=== PATIENT | female | born 1965 | race Caucasian/White ===

== ENCOUNTER → 2016-06-18 | Outpatient (CLI) | payer OTHER ==
[~2016-06-18] MED LIST: ALBU17IN INH; AMLO10TA2 PO; CLAR10CA3 PO; CLOB0.77 TOP; DILT60TA PO; DUONSOL INH; FURO20TA2 PO; FURO40TA2 PO; IBUP-1114 PO; IBUP200C PO; IBUP60TA PO; LISI40TAB PO; MONT10TA2 PO; MULT1TAB9 PO; NORCOTAB PO; OMEP40CA2 PO; SING4GRA PO; SPIR50TA2 PO; SYMB16INH INH; TYLE325T5 PO
--- NOTE | 2016-06-18 11:23 | REPMRS ---
Patient History The patient states she had a clinical breast exam in 06/2016. Patient is postmenopausal. No known family history of cancer. Digital Woman Screen Mammo: June 18, 2016 - Exam #: [id number] Bilateral CC and MLO view(s) were taken. Technologist: Dannielle Dozier, Technologist Prior study comparison: May 23, 2014, digital woman screen mammo performed at [facility] to [facility]. September 18, 2009, bilateral bilat screen digital mammo performed at [facility] to [facility]. FINDINGS: There are scattered fibroglandular densities. There has been no change in the appearance of the mammogram from the prior studies. There is a mild amount of scattered fibroglandular density which is fairly symmetric. There is no interval development of dominant mass, architectural distortion, or clustered microcalcification suggestive of malignancy. ASSESSMENT: BI-RADS/ACR category 1 mammogram. Negative. Recommendation Routine screening mammogram in 1 year (for women over age 40). This mammogram was interpreted with the aid of an FDA-approved computer-aided dectection system. Electronically Signed By: Nasir Mcgrath MD 06/18/16 [id number]
== END | disposition home or self-care (01) ==
LOC: M WHC 10:09
PROVIDERS: ATTEND Nurse Practitioner Family
DX: Z12.31 Encounter for screening mammogram for malignant neoplasm of breast (principal); Z78.0 Asymptomatic menopausal state

== ENCOUNTER → 2016-07-21 | Outpatient (CLI) | payer OTHER ==
--- NOTE | 2016-07-22 07:55 | REP ---
Clinical: Shoulder pain. Technique: Internal rotation, external rotation, and Y view of the left shoulder. Findings: Subtle cortical irregularity at the acromioclavicular joint is appreciated along with calcified density adjacent to the lateral margin of the humeral head and greater tuberosity. No acute fracture or dislocation. Impression: Mild degenerative changes including possible calcific tendinopathy. Signed by Brenden Berg MD 07/22/2016 07:47 A
== END ==
LOC: M RAD 17:17
PROVIDERS: ATTEND Nurse Practitioner Adult Health
DX: M65.812 Other synovitis and tenosynovitis, left shoulder (principal); M19.012 Primary osteoarthritis, left shoulder

== ENCOUNTER → 2016-07-21 | Outpatient (CLI) | payer OTHER ==
--- NOTE | 2016-07-25 06:10 | SLEEPCENT ---
DATE OF PROCEDURE: 07/21/2016 ORDERED BY: Vineet Gentile DO Nocturnal polysomnography was performed for evaluation of sleep apnea syndrome symptoms in this patient with a history of excessive somnolence, morning headaches, and comorbidities with hypertension and diabetes. 7 hours and 32 minutes of data were reviewed. There were 288 minutes of sleep identified. Sleep latency was prolonged at 47 minutes. Rapid eye movement (REM) was normal at 92 minutes. Sleep architecture showed fragmentation with a prolonged period of wake between 3 and 4:30 resulting in reduced sleep efficiency of 64%. The patient's electrocardiogram (EKG) showed a sinus rhythm with an average heart rate of 68 beats per minute. Electroencephalogram (EEG) showed normal waveforms for awake and sleep. There were 54 respiratory events identified of 10 seconds in duration or greater for an apnea hypopnea index of 11.2. The events were primarily obstructive, not exclusive to sleep stage nor body posture, more frequent in the supine position. Arousals from respiratory events occurred 7.7 times per hour and oxygen desaturations were seen into the upper 80s. There was limb activity appreciable. No trains of events. Limb movement arousals occurred five times per hour. Remaining of measures of sleep physiology were normal. IMPRESSION: Mild obstructive sleep apnea syndrome (G47.33). Apnea hypopnea index 11.2. RECOMMENDATION: The patient should be encouraged to return to the sleep disorder center for pressure therapy. In the interim, alcohol and sedative avoidance should be practiced and caution exercised during the operation of motor vehicles.
== END ==
LOC: M SLEEP 18:46
PROVIDERS: ATTEND Internal Medicine Pulmonary Disease
DX: G47.33 Obstructive sleep apnea (adult) (pediatric) (principal)

== ENCOUNTER → 2016-09-24 | Outpatient (CLI) | payer OTHER ==
--- NOTE | 2016-09-27 15:08 | SLEEPCENT ---
DATE OF PROCEDURE: 09/24/2016 ORDERED BY: Dr. Gentile Nocturnal polysomnography was performed for the titration of pressure therapy in this patient with obstructive sleep apnea syndrome and apnea-hypopnea index of 11. For testing, the patient was fit with a [employer] Sim[employer] full face mask of small size and 4 cm of water pressure were applied to the circuit and the lights were extinguished. 7 hours and 26 minutes of data were reviewed. There were 323 minutes of sleep identified. Sleep latency was prolonged at 55 minutes. Rapid eye movement (REM) latency was normal at 82 minutes. Sleep architecture improved over the course of the study. There were 4 REM periods appreciated. Overall sleep efficiency was 74.5%. The patient's electrocardiogram (EKG) showed a sinus rhythm with an average heart rate of 62 beats per minute. Electroencephalogram (EEG) showed normal waveforms for awake and sleep. Respiratory events were fully palliated with CPAP at a pressure of +6. Remaining measures of sleep physiology were within reasonably normal limits. IMPRESSION: Obstructive sleep apnea syndrome (G47.33). RECOMMENDATION: Nightly use of pressure therapy at 6 cm of water.
== END ==
LOC: M SLEEP 18:12
PROVIDERS: ATTEND Internal Medicine Pulmonary Disease
DX: G47.33 Obstructive sleep apnea (adult) (pediatric) (principal)

== ENCOUNTER → 2017-02-05 | Outpatient (CLI) | payer OTHER ==
[~2017-02-05] MED LIST changes: -IBUP200C PO; +IBUP200C10 PO
--- NOTE | 2017-02-05 09:37 | REP ---
Clinical: Cough . Comparison: 01/23/2016 . Technique: PA and lateral. Findings: The mediastinum and cardiac silhouette are normal. The lung segura are clear and without acute consolidation, effusion, or pneumothorax. The skeletal structures are intact and normal. Impression: 1. No acute cardiopulmonary process. Signed by Brenden Berg MD 02/05/2017 09:28 A
== END ==
LOC: M RAD 09:18
PROVIDERS: ATTEND Internal Medicine Pulmonary Disease
DX: R05 Cough (principal)

== ENCOUNTER → 2017-02-06 | Outpatient (REF) | payer OTHER | LOC: M LAB REF 05:09 | PROVIDERS: ATTEND Internal Medicine Pulmonary Disease | DX: R05 Cough (principal); J44.1 Chronic obstructive pulmonary disease with (acute) exacerbation ==

== ENCOUNTER → 2017-05-18 | Outpatient (CLI) | payer OTHER ==
--- NOTE | 2017-05-19 01:48 | REP ---
Clinical: Dyspnea. History of COPD . Comparison: 02/05/2017 . Technique: PA and lateral. Findings: The mediastinum and cardiac silhouette are normal. The lung segura are clear and without acute consolidation, effusion, or pneumothorax. The skeletal structures are intact and normal. Impression: 1. No acute cardiopulmonary process. Signed by Brenden Berg MD 05/18/2017 10:39 P
== END ==
LOC: M SMT 14:27
PROVIDERS: ATTEND Internal Medicine Pulmonary Disease
DX: J44.1 Chronic obstructive pulmonary disease with (acute) exacerbation (principal)

== ENCOUNTER → 2017-05-19 | Outpatient (REF) | payer OTHER | LOC: M LAB REF 14:15 | PROVIDERS: ATTEND Physician Assistant | DX: J44.1 Chronic obstructive pulmonary disease with (acute) exacerbation (principal) ==

== ENCOUNTER → 2017-07-18 | Outpatient (REF) | payer OTHER | LOC: M LAB REF 09:57 | DX: J44.1 Chronic obstructive pulmonary disease with (acute) exacerbation (principal) ==

== ENCOUNTER → 2017-07-20 | Outpatient (CLI) | payer OTHER | LOC: M WHC 10:17 | DX: Z12.31 Encounter for screening mammogram for malignant neoplasm of breast (principal) ==

== ENCOUNTER → 2017-07-23 | Outpatient (CLI) | payer OTHER | LOC: M RAD 09:48 | DX: N63.22 Unspecified lump in the left breast, upper inner quadrant (principal) | CPT/HCPCS: 77066 ==

== ENCOUNTER → 2017-09-11 | Outpatient (REF) | payer OTHER | LOC: M LAB REF 13:02 | DX: J44.1 Chronic obstructive pulmonary disease with (acute) exacerbation (principal) | CPT/HCPCS: 87205 ==

== ENCOUNTER → 2017-11-23 | Outpatient (CLI) | payer OTHER | LOC: M SMT 14:10 | DX: J44.9 Chronic obstructive pulmonary disease, unspecified (principal) | CPT/HCPCS: 71046 ==

== ENCOUNTER → 2018-03-03 | Outpatient (CLI) | payer OTHER | LOC: M EKG 11:00 | DX: Z01.818 Encounter for other preprocedural examination (principal); J44.9 Chronic obstructive pulmonary disease, unspecified; J45.909 Unspecified asthma, uncomplicated; I15.0 Renovascular hypertension | CPT/HCPCS: 71046 ==

== ENCOUNTER 2018-03-08 08:49 | Day surgery (SDC) | payer OTHER ==
[~2018-03-08 08:49] MED LIST changes: -ALBU17IN INH; -AMLO10TA2 PO; -CLAR10CA3 PO; -CLOB0.77 TOP; -DILT60TA PO; -DUONSOL INH; -FURO20TA2 PO; -FURO40TA2 PO; -IBUP-1114 PO; -IBUP200C10 PO; -IBUP60TA PO; -LISI40TAB PO; +MIDAZOLAM INJ 2 MG/2 ML VIAL (J2250) As Ordered; -MONT10TA2 PO; -MULT1TAB9 PO; -NORCOTAB PO; -OMEP40CA2 PO; +PHENYLEPHRINE HCL 10 % OPHTH. SOL 5ML OD; -SING4GRA PO; -SPIR50TA2 PO; -SYMB16INH INH; -TYLE325T5 PO; +fentaNYL 100 MCG/2 ML INJECTION (J3010) As Ordered
[2018-03-08] MEDS ORDERED: OFLOXACIN 0.3 % (OCUFLOX) OPTH SOL 5ML As Ordered (09:32)
[2018-03-08] MEDS ORDERED: TROPICAMIDE 1% OPHTH SOLN 2ML As Ordered (09:32)
[2018-03-08] MEDS ORDERED: PHENYLEPHRINE 2.5% OPHTH SOL 2ML As Ordered (09:32)
[2018-03-08] MEDS ORDERED: CYCLOPENTOLATE 2% OPHTH SOLN 2ML BTL As Ordered (09:32)
[2018-03-08 09:45] LABS: BEDSIDE GLUCOSE 161 MG/DL (70-105)
[2018-03-08] MEDS: LIDOCAINE 3.5 % 1ML OPHTH TOPICAL GEL OU (10:09)
[2018-03-08] MEDS: PHENYLEPHRINE 2.5% OPHTH SOL 2ML OD (10:09)
[2018-03-08] MEDS: TROPICAMIDE 1% OPHTH SOLN 2ML OD (10:09)
[2018-03-08] MEDS: CYCLOPENTOLATE 2% OPHTH SOLN 2ML BTL OD (10:09)
[2018-03-08] MEDS: OFLOXACIN 0.3 % (OCUFLOX) OPTH SOL 5ML OD (10:09)
[2018-03-08] MEDS: POVIDONE-IODINE 5% OPHTH PREP SOL 30ML As Ordered (10:52)
[2018-03-08] MEDS: LIDOCAINE 1% SDV 5 ML VIAL As Ordered (10:56)
[2018-03-08] MEDS: BSS with VANC/TOB/EPI for EYE CASES IR (10:56)
[2018-03-08] MEDS: MOXIFLOXACIN IN BSS 0.25MG/0.25ML INTRACAMERAL INJ (OR EYE ONLY)(J2280) As Ordered (11:01)
[2018-03-08] MEDS: HEALON DUET (HEALON 10MG/ML 0.55ML & HEALON ENDOCOAT 30MG/ML 0.85ML) As Ordered (11:01)
[2018-03-08] MEDS: TRIAMCINOLONE PRES FR 40 MG/ML 1ML(TRIESENCE)(OR EYE ONLY)(J3300 PER 1MG) As Ordered (11:01)
== END 2018-03-08 11:46 | disposition home or self-care (01) ==
LOC: M SDC 08:49
DX: H25.9 Unspecified age-related cataract (principal); I10 Essential (primary) hypertension; E78.5 Hyperlipidemia, unspecified; E11.9 Type 2 diabetes mellitus without complications; G47.30 Sleep apnea, unspecified; Z91.040 Latex allergy status; Z91.030 Bee allergy status; Z79.82 Long term (current) use of aspirin; Z79.84 Long term (current) use of oral hypoglycemic drugs; Z79.899 Other long term (current) drug therapy; Z87.891 Personal history of nicotine dependence
CPT/HCPCS: 66984

== ENCOUNTER 2018-04-05 07:47 | Day surgery (SDC) | payer OTHER ==
[~2018-04-05 07:47] MED LIST changes: +ACETAMINOPHEN 325 MG TAB PO; -PHENYLEPHRINE HCL 10 % OPHTH. SOL 5ML OD; +PHENYLEPHRINE HCL 10 % OPHTH. SOL 5ML OS
[2018-04-05 08:36] LABS: BEDSIDE GLUCOSE 137 MG/DL (70-105)
[2018-04-05] MEDS: CYCLOPENTOLATE 2% OPHTH SOLN 2ML BTL OS (08:43)
[2018-04-05] MEDS: PHENYLEPHRINE 2.5% OPHTH SOL 2ML OS (08:44)
[2018-04-05] MEDS: TROPICAMIDE 1% OPHTH SOLN 2ML OS (08:44)
[2018-04-05] MEDS: LIDOCAINE 3.5 % 1ML OPHTH TOPICAL GEL OU (08:44)
[2018-04-05] MEDS: OFLOXACIN 0.3 % (OCUFLOX) OPTH SOL 5ML OS (08:44)
[2018-04-05] MEDS: HEALON DUET (HEALON 10MG/ML 0.55ML & HEALON ENDOCOAT 30MG/ML 0.85ML) As Ordered (09:43)
[2018-04-05] MEDS: POVIDONE-IODINE 5% OPHTH PREP SOL 30ML As Ordered (09:43)
[2018-04-05] MEDS: LIDOCAINE 1% SDV 5 ML VIAL As Ordered (09:44)
[2018-04-05] MEDS: BSS with VANC/TOB/EPI for EYE CASES IR (09:44)
[2018-04-05] MEDS: MOXIFLOXACIN IN BSS 0.25MG/0.25ML INTRACAMERAL INJ (OR EYE ONLY)(J2280) As Ordered ×2 (09:44)
[2018-04-05] MEDS: TRIAMCINOLONE PRES FR 40 MG/ML 1ML(TRIESENCE)(OR EYE ONLY)(J3300 PER 1MG) As Ordered (09:44)
[2018-04-05] MEDS: AcetaZOLAMIDE 500 MG ER CAP PO (10:22)
[2018-04-05] MEDS ORDERED: TRIMETHOBENZAMIDE 300 MG CAP PO (10:30)
== END 2018-04-05 10:30 | disposition home or self-care (01) ==
LOC: M SDC 07:47
DX: H25.9 Unspecified age-related cataract (principal); E11.9 Type 2 diabetes mellitus without complications; I10 Essential (primary) hypertension; E78.5 Hyperlipidemia, unspecified; Z79.82 Long term (current) use of aspirin; Z79.84 Long term (current) use of oral hypoglycemic drugs; Z79.899 Other long term (current) drug therapy; K21.9 Gastro-esophageal reflux disease without esophagitis; G47.30 Sleep apnea, unspecified; Z91.040 Latex allergy status; Z91.030 Bee allergy status; Z87.891 Personal history of nicotine dependence
CPT/HCPCS: 66984

== ENCOUNTER → 2018-11-29 | Outpatient (CLI) | payer OTHER ==
[~2018-11-29] MED LIST changes: -ACETAMINOPHEN 325 MG TAB PO; +ALBU17IN INH; +AMLO10TA5 PO; +ASPI81TA26 PO; +ATEN25TA PO; +ATEN50TA2 PO; +CLAR10CA3 PO; +CLOB0.77 TOP; +DILT60TA PO; +DUONSOL INH; +ESTR62CR PV; +FURO20TA2 PO; +FURO40TA2 PO; +GEMF600T5 PO; +HYDR-3715 PO; +IBUP-1114 PO; +IBUP200C25 PO; +IBUP600T42 PO; +LISI20TA PO; +LISI40TA52 PO; +METF10004 PO; -MIDAZOLAM INJ 2 MG/2 ML VIAL (J2250) As Ordered; +MONT10TA2 PO; +MULT1TAB9 PO; +NESI25TA PO; +OMEP40CA2 PO; -PHENYLEPHRINE HCL 10 % OPHTH. SOL 5ML OS; +SIMV10TA2 PO; +SING4GRA PO; +SPIR50TA4 PO; +SYMB16INH INH; +TYLE325T5 PO; +TYLE500T78 PO; +VENTAER INH; +VIVE0.05 TD; +duoneb INH; -fentaNYL 100 MCG/2 ML INJECTION (J3010) As Ordered
--- NOTE | 2018-11-29 12:30 | REPMRS ---
Patient History The patient states she had a clinical breast exam in 11/2018. Patient is postmenopausal. Taking estrogen for 2 years. 3D TOMOSYNTHESIS WAS PERFORMED. The [facility] lifetime risk for breast cancer is 7.8%. Digital Woman Screen Mammo: November 29, 2018 - Exam #: [id number] Bilateral CC and MLO view(s) were taken. Technologist: Dannielle Dozier, Technologist Prior study comparison: July 23, 2017, digital mammo diagnostic bilateral, performed at [facility]. June 18, 2016, digital woman screen mammo performed at [facility]. FINDINGS: There are scattered fibroglandular densities. There has been no change in the appearance of the mammogram from the prior studies. There is a mild amount of residual fibroglandular tissue which is fairly symmetric. There is no interval development of dominant mass, architectural distortion, or clustered microcalcification suggestive of malignancy. Assessment: BI-RADS/ACR category 1 mammogram. Negative Mammogram. Recommendation Routine screening mammogram in 1 year (for women over age 40). This mammogram was interpreted with the aid of an FDA-approved computer-aided dectection system. Electronically Signed By: Sergio Cotter MD 11/29/18 [id number]
== END ==
LOC: M WHC 10:05
PROVIDERS: ATTEND Nurse Practitioner Family
DX: Z12.31 Encounter for screening mammogram for malignant neoplasm of breast (principal)

== ENCOUNTER → 2019-01-04 | Outpatient (REF) | payer OTHER | LOC: M SFHCWAGY 15:53 | PROVIDERS: ATTEND Nurse Practitioner Family | DX: R30.0 Dysuria (principal) ==

== ENCOUNTER → 2019-03-16 | Outpatient (CLI) | payer OTHER ==
[~2019-03-16] MED LIST changes: -LISI20TA PO; +LISI20TA19 PO; -OMEP40CA2 PO; +OMEP40CA97 PO
--- NOTE | 2019-03-16 11:43 | REP ---
Two-view chest: 03/16/2019. Indication: Dyspnea. Comparison: 03/03/2018. Findings: The lungs are clear. No significant pleural effusion is present. There is no pneumothorax. Cardiac silhouette is unremarkable. Impression: Clear lungs. Electronically Signed by Charanjit Ivan DO 03/16/2019 11:34 A
== END ==
LOC: M SMT 10:09
PROVIDERS: ATTEND Internal Medicine Pulmonary Disease
DX: J44.9 Chronic obstructive pulmonary disease, unspecified (principal)

== ENCOUNTER 2019-04-04 09:14 | Day surgery (SDC) | payer OTHER ==
[~2019-04-04] VITALS: Ht 160 cm; Wt 101.2 kg
[~2019-04-04 09:14] MED LIST changes: +DOXY-350 PO; +NS 1,000 ML IV ONE
[2019-04-04] MEDS ORDERED: PROPOFOL 200 MG/20 ML VIAL As Ordered ONE (09:54)
[2019-04-04] MEDS ORDERED: LIDOCAINE 2% INJ 100 MG/5 ML SDV (FOR ANES.) As Ordered ONE (09:54)
--- NOTE | 2019-04-04 11:46 | ROOR ---
Patient Name: Morelia Payton Procedure Date: 04/04/2019 11:19 AM Date of : 1965 Age: 54 Room: [facility] Gender: Female Note Status: Finalized Procedure: Total Colonoscopy to Cecum + Cold Snare Polypectomy Indications: Screening for colorectal malignant neoplasm Providers: Wil Garcia MD Referring MD: TYLER GRIGGS NP Requesting Provider: Medicines: Monitored Anesthesia Care Complications: No immediate complications. Procedure: Pre-Anesthesia Assessment: - The heart rate, respiratory rate, oxygen saturations, blood pressure, adequacy of pulmonary ventilation, and response to care were monitored throughout the procedure. The Colonoscope was introduced through the anus and advanced to the cecum, identified by appendiceal orifice and ileocecal valve. The colonoscopy was performed without difficulty. The patient tolerated the procedure well. The quality of the bowel preparation was excellent. Findings: The perianal and digital rectal examinations were normal. Non-bleeding internal hemorrhoids were found during retroflexion. The hemorrhoids were small and Grade I (internal hemorrhoids that do not prolapse). A small polyp was found in the transverse colon. The polyp was sessile. The polyp was removed with a cold snare. Resection and retrieval were complete. The exam was otherwise without abnormality on direct and retroflexion views. The terminal ileum appeared normal. Impression: - Non-bleeding internal hemorrhoids. - One small polyp in the transverse colon, removed with a cold snare. Resected and retrieved. - The examination was otherwise normal on direct and retroflexion views. - The examined portion of the ileum was normal. - The exam was otherwise normal to the cecum. Recommendation: - Patient has a contact number available for emergencies. The signs and symptoms of potential delayed complications were discussed with the patient. Return to normal activities tomorrow. Written discharge instructions were provided to the patient. - High fiber diet. - Discharge patient to home. - Continue present medications. - Await pathology results. - Telephone GI clinic for pathology results in 1 week. - Repeat colonoscopy date to be determined after pending pathology results are reviewed for surveillance. - Return to referring physician. - The findings and recommendations were discussed with the patient's family. Wil Garcia MD Wil Garcia MD 04/04/2019 11:46:46 AM Electronically signed by Wil Garcia MD Number of Addenda: 0 Note Initiated On: 04/04/2019 11:19 AM Estimated Blood Loss: Estimated blood loss: none.
[2019-04-04 12:05] VITALS: BP 128/95
== END 2019-04-04 12:14 | disposition home or self-care (01) ==
LOC: M OPP 09:14
PROVIDERS: ATTEND Internal Medicine Gastroenterology
DX: Z12.11 Encounter for screening for malignant neoplasm of colon (principal); K64.0 First degree hemorrhoids; K63.5 Polyp of colon; N18.9 Chronic kidney disease, unspecified; J44.9 Chronic obstructive pulmonary disease, unspecified; Z87.891 Personal history of nicotine dependence; Z79.82 Long term (current) use of aspirin; Z79.84 Long term (current) use of oral hypoglycemic drugs; Z79.899 Other long term (current) drug therapy; Z88.1 Allergy status to other antibiotic agents; Z91.030 Bee allergy status; Z91.040 Latex allergy status; Z91.048 Other nonmedicinal substance allergy status

== ENCOUNTER → 2019-04-15 | Outpatient (REF) | payer OTHER ==
[~2019-04-15] MED LIST changes: -NS 1,000 ML IV ONE
== END ==
LOC: M LAB REF 13:07
PROVIDERS: ATTEND Internal Medicine Pulmonary Disease
DX: R05 Cough (principal)

== ENCOUNTER → 2019-08-25 | Outpatient (CLI) | payer OTHER ==
[~2019-08-25] MED LIST changes: -MONT10TA2 PO; +MONT10TA4 PO; -SIMV10TA2 PO; +SIMV10TA21 PO
--- NOTE | 2019-08-25 11:44 | REP ---
RENAL ULTRASOUND: Real-time sonographic evaluation of kidneys performed. The kidneys are normal in size and echotexture, right kidney measuring 10.5 x 5. 1 x 4.6 cm and left kidney 10.6 x 4.7 x 5.7 cm. There is no hydronephrosis or renal mass seen bilaterally. No definite renal calculus is seen. IMPRESSION: Negative renal ultrasound. Electronically Signed by Sergio Cotter MD 08/25/2019 04:52 P
--- NOTE | 2019-08-25 11:46 | REP ---
URINARY BLADDER ULTRASOUND: Real-time sonographic evaluation of the urinary bladder performed. Urinary bladder is mildly distended, measuring 4.9 x 6.0 x 3.1 cm for a total volume of 60 mL. Ureteral jets are seen in the urinary bladder with Doppler color evaluation. No gross bladder mass or calculus is seen. There is no post-void residual after voiding. IMPRESSION: Somewhat suboptimal ultrasound due to poorly distended bladder, the patient stated her bladder was full. No gross abnormality is detected. No post-void residual. Electronically Signed by Sergio Cotter MD 08/25/2019 04:52 P
== END ==
LOC: M RAD 10:01
PROVIDERS: ATTEND Nurse Practitioner Adult Health
DX: R31.9 Hematuria, unspecified (principal)

== ENCOUNTER → 2019-12-05 | Outpatient (CLI) | payer OTHER ==
--- NOTE | 2019-12-05 15:42 | REP ---
BILATERAL MAMMOGRAM WITH 3D TOMOSYNTHESIS: COMPARISON: 11/29/2018 as well as other prior exams. No family history of breast cancer. Tyrer-Cuzick lifetime risk of breast cancer is 7.7%. Volpara breast density A. MLO and CC of the both breast performed. Mild scattered fibroglandular tissue is again seen bilaterally. No mass or architectural distortion is seen. However, there are new clustered pleomorphic microcalcifications in the lateral left breast. Magnification views are recommended to further evaluate. IMPRESSION: BIRADS 0: BI-RADS/ACR category 0 mammogram, Incomplete: Need additional imaging evaluation and/or prior mammograms for comparison. ACR 0 incomplete. New clustered microcalcifications outer left breast somewhat posteriorly. Recommend magnification views to further evaluate. This mammogram was interpreted with the aid of an FDA-approved computer-aided detection system. A. Negative x-ray reports should not delay biopsy if a dominant or clinically suspicious mass is present. B. Four to eight percent of cancers are not identified by x-ray. C. Adenosis and dense breasts may obscure an underlying neoplasm. The patient states she/he had a clinical breast exam in November 2019. The patient letter being requested is M0. ?
== END ==
LOC: M WHC 10:31
PROVIDERS: ATTEND Nurse Practitioner Family
DX: Z12.31 Encounter for screening mammogram for malignant neoplasm of breast (principal); R92.0 Mammographic microcalcification found on diagnostic imaging of breast

== ENCOUNTER → 2019-12-12 | Outpatient (CLI) | payer OTHER ==
[~2019-12-12] MED LIST changes: -AMLO10TA5 PO; +AMLO1TAB25 PO; -LISI20TA19 PO; +LISI20TA35 PO
--- NOTE | 2019-12-12 11:32 | REP ---
DIAGNOSTIC MAMMOGRAM LEFT BREAST: Magnification views left breast are performed in multiple projections and correlated with the recent mammogram of 12/05/2019. The magnification views confirm the presence of a cluster of pleomorphic microcalcifications in the upper outer quadrant of the left breast. These appear somewhat suspicious. Recommend stereotactic biopsy. IMPRESSION: BIRADS 4: BI-RADS/ACR category 4 mammogram. Suspicious Abnormality - biopsy should be considered. ACR 4 suspicious. Clustered pleomorphic microcalcifications upper outer quadrant left breast. Recommend sterotactic biopsy. Patient letter requests is M4.
== END ==
LOC: M WHC 08:59
PROVIDERS: ATTEND Nurse Practitioner Family
DX: Z12.31 Encounter for screening mammogram for malignant neoplasm of breast (principal); R92.0 Mammographic microcalcification found on diagnostic imaging of breast

== ENCOUNTER → 2020-02-02 | Outpatient (CLI) | payer OTHER ==
[2020-02-02 17:53] VITALS: BP 152/88
--- NOTE | 2020-02-28 14:23 | REP ---
POST-BIOPSY MAMMOGRAM LEFT BREAST TECHNIQUE: ML and CC views of the left breast were performed status post stereotactic biopsy of clustered microcalcifications in the upper outer quadrant. FINDINGS: A biopsy clip is seen at the site of the previously noted cluster of microcalcifications. The microcalcifications are no longer visualized. MTDD
--- NOTE | 2020-02-28 14:24 | REP ---
STEREOTACTIC LEFT BREAST BIOPSY The procedure was performed under the general supervision of Dr. Cotter. The patient has a history of clustered pleomorphic microcalcifications in the upper outer quadrant of the left breast seen on a previous mammogram dated 12/12/2019. The risks and benefits of the procedure were explained to the patient and informed consent was obtained. A caudocranial approach was utilized. The calcifications were localized using stereotactic mammographic guidance. The skin was prepped and draped in a sterile fashion. 1% Lidocaine was used as a local anesthetic. Using stereotactic guidance, 10-gauge suction-assisted Mammotome was inserted and six core biopsy samples were obtained. Specimen radiograph was obtained; however, there were no calcifications seen within the specimen. The calcifications were then re- targeted and the needle was then reinserted. Five more samples were obtained and again, specimen radiograph demonstrates no evidence of calcifications. Four more samples were obtained and specimen radiograph demonstrates the presence of calcifications to be within the specimen. A marker clip was placed at the biopsy site. The patient tolerated the procedure well and there were no immediate complications MTDD
== END ==
LOC: M WHCPRO 13:55
PROVIDERS: ATTEND Surgery
DX: N60.89 Other benign mammary dysplasias of unspecified breast (principal)

== ENCOUNTER → 2020-07-30 | Outpatient (CLI) | payer MEDICARE ==
[~2020-07-30] MED LIST changes: +MONT10TA10 PO; -MONT10TA4 PO
--- NOTE | 2020-07-30 13:45 | REP ---
INDICATION: R92.1 LT BREAST CALCIFICATIONS,S/P BENIGN BX. COMPARISON: 12/05/2019, 12/12/2019 and 02/02/2020. TECHNIQUE: MLO, mL and CC views left breast performed with tomosynthesis. FINDINGS: The Volpara volumetric breast density pattern is B. Since the prior screening mammogram of 12/05/2019 and diagnostic mammogram of 12/12/2019 the patient has had a benign stereotactic biopsy of left breast microcalcifications. A biopsy clip is seen at the site of the biopsy. There are few tiny residual calcifications noted. No new mass or clustered microcalcifications are seen. There scattered coarse benign type calcifications with mild scattered fibroglandular tissue present. There is a morphologically normal appearing left axillary lymph node. IMPRESSION: BIRADS/ACR category 1, negative mammogram left breast. This patient's Tyrer-Cuzick lifetime breast cancer risk assessment score is 7.5%. This mammogram was interpreted with the aid of an FDA-approved computer-aided detection system. The patient states she had a clinical breast exam in October 2019. The patient letter being requested is M1. RECOMMENDATION: Repeat screening bilateral mammogram recommended November 2020. <Electronically signed by eSrgio Cotter > 07/30/20 [id number]
== END ==
LOC: M WHC 12:46
PROVIDERS: ATTEND Surgery
DX: R92.1 Mammographic calcification found on diagnostic imaging of breast (principal)
CPT/HCPCS: 77065; G0279

== ENCOUNTER → 2020-12-06 | Outpatient (CLI) | payer MEDICARE ==
[~2020-12-06] MED LIST changes: +OMEP40CA4 PO; -OMEP40CA97 PO
--- NOTE | 2020-12-06 13:13 | REPMRS ---
Patient History The patient states she had a clinical breast exam in November 2020. Benign stereotatic loc for ea lesion. of the left breast, February 02, 2020. Benign radio exam breast specimen. of the left breast, February 02, 2020. Taking estrogen for 4 years. Patient states no breast complaints today. Patient has signed MRS History Sheet. Digital Woman Screen Mammo: December 06, 2020 - Exam #: [id number] Bilateral CC and MLO view(s) were taken. Technologist: Mary Grace Rucker, Technologist Prior study comparison: July 30, 2020, left breast diagnostic unilateral mammo performed at [facility]. December 12, 2019, left breast diagnostic unilateral mammo performed at [facility]. December 05, 2019, bilateral digital woman screen mammo performed at [facility]. November 29, 2018, bilateral digital woman screen mammo performed at [facility]. July 23, 2017, digital mammo diagnostic bilateral, performed at [facility]. FINDINGS: There are scattered fibroglandular densities. The Volpara volumetric breast density category is:B. A needle biopsy marker clip is again noted on the left with associated surrounding soft tissue density, HydroMARK device. This is unchanged from the most recent prior study of July 31, 2019. The previously biopsied microcalcifications are decreased in number with only 1 or 2 remaining. There has been no change in the appearance of the mammogram from the prior studies. There is a mild amount of scattered fibroglandular density which is fairly symmetric. There is no interval development of dominant mass, architectural distortion, or grouped microcalcification suggestive of malignancy. 3-D tomosynthesis shows no additional findings. Assessment: BI-RADS/ACR category 2 mammogram. Benign Findings. Recommendation Routine screening mammogram of both breasts in 1 year (for women over age 40). This patient's [facility] Lifetime Breast Cancer Risk is estimated at 7.5 %. This mammogram was interpreted with the aid of an FDA-approved computer-aided dectection system. Electronically Signed By: Nasir Mcgrath MD 12/06/20 1980
== END ==
LOC: M WHC 11:03
PROVIDERS: ATTEND Nurse Practitioner Women's Health
DX: Z12.31 Encounter for screening mammogram for malignant neoplasm of breast (principal); Z86.018 Personal history of other benign neoplasm; Z92.23 Personal history of estrogen therapy; R92.0 Mammographic microcalcification found on diagnostic imaging of breast
CPT/HCPCS: 77063; 77067; G0463

== ENCOUNTER → 2022-01-29 | Outpatient (CLI) | payer MEDICARE ==
[~2022-01-29] MED LIST changes: -CLOB0.77 TOP; +CLOB1SPR TOP; -MONT10TA10 PO; +MONT10TA97 PO
== END ==
LOC: M WHC 09:48
PROVIDERS: ATTEND Nurse Practitioner Family
DX: Z12.31 Encounter for screening mammogram for malignant neoplasm of breast (principal)

== ENCOUNTER → 2023-02-04 | Outpatient (CLI) | payer MEDICARE, MEDICAID ==
[~2023-02-04] MED LIST changes: -DOXY-350 PO; +DOXY-444 PO; +MONT4GRA10 PO; -SING4GRA PO
== END ==
LOC: M WHC 08:55
PROVIDERS: ATTEND Nurse Practitioner Adult Health
DX: Z12.31 Encounter for screening mammogram for malignant neoplasm of breast (principal)

== ENCOUNTER → 2023-08-11 | Outpatient (REF) | payer MEDICARE, MEDICAID | LOC: M LAB REF 14:50 | PROVIDERS: ATTEND Physician Assistant | DX: J44.9 Chronic obstructive pulmonary disease, unspecified (principal) ==

== ENCOUNTER → 2024-05-13 | Outpatient (CLI) | payer MEDICARE, MEDICAID ==
[~2024-05-13] MED LIST changes: +CLOB-100 TOP; -CLOB1SPR TOP; +DOXY-440 PO; -DOXY-444 PO
== END ==
LOC: M WHC 09:30
PROVIDERS: ATTEND Nurse Practitioner Adult Health
DX: Z12.31 Encounter for screening mammogram for malignant neoplasm of breast (principal); R10.9 Unspecified abdominal pain; R92.313 Mammographic fatty tissue density, bilateral breasts; R16.0 Hepatomegaly, not elsewhere classified